=== PATIENT | female | born 1995 | race Two or more races ===

== ENCOUNTER 2017-03-29 11:44 | Emergency (ER) | payer BC, OTHER ==
[~2017-03-29] VITALS: Ht 160 cm; Wt 81.3 kg
[2017-03-29] MEDS ORDERED: SODIUM CHLORIDE 0.9% 1,000ML IVBOLUS ONE (12:30)
[2017-03-29] MEDS ORDERED: SODIUM CHLORIDE FLUSH 10ML SYR IVF ONE (12:30)
[2017-03-29] MEDS ORDERED: KETOROLAC 30 MG/1 ML IVPush ONE (12:30)
[2017-03-29] MEDS ORDERED: ONDANSETRON 2MG/ML, 2ML IVPush ONE (12:30)
[2017-03-29] MEDS ORDERED: CEFTRIAXONE PMX 1GM/50ML 50 ML ONE (12:53)
[2017-03-29] MEDS ORDERED: KETOROLAC 30 MG/1 ML ONE (12:53)
[2017-03-29] MEDS ORDERED: ONDANSETRON 2MG/ML, 2ML ONE (12:53)
[2017-03-29] MEDS ORDERED: CEFTRIAXONE PMX 1GM/50ML 50 ML IV ONE (13:00)
[2017-03-29 13:20] LABS: BLOOD UREA NITROGEN 6 mg/dL (7-18)
[2017-03-29 13:23] LABS: ASPARTATE AMINO TRANSFERASE 12 U/L (15-37)
[2017-03-29 14:22] VITALS: BP 110/62
== END 2017-03-29 14:24 | disposition home or self-care (01) ==
LOC: ED 12:24
DX: O23.02 Infections of kidney in pregnancy, second trimester (principal); Z3A.15 15 weeks gestation of pregnancy
CPT/HCPCS: 36415; 80053; 85025; 96365; 96375; 99284; J0696; J1885; J2405; J7030

== ENCOUNTER 2017-09-04 15:46 | Outpatient (CLI) | payer MEDICAID, OTHER ==
[2017-09-04 16:05] VITALS: BP 113/59
[2017-09-04] MEDS ORDERED: PREN1TAB10 PO (17:04)
== END 2017-09-04 17:18 | disposition home or self-care (01) ==
LOC: LDOP 15:46
PROVIDERS: ATTEND Obstetrics & Gynecology
DX: Z36.9 Encounter for antenatal screening, unspecified (principal); Z3A.37 37 weeks gestation of pregnancy
CPT/HCPCS: 59025; 76819; 99211; G0463

== ENCOUNTER 2018-06-02 04:37 | Emergency (ER) | payer MEDICAID ==
[~2018-06-02] VITALS: Ht 160 cm; Wt 82.4 kg
[~2018-06-02 04:37] MED LIST: HYDR-3240 PO; IBUP-1222 PO; PREN1TAB10 PO
[2018-06-02] MEDS ORDERED: SODIUM CHLORIDE FLUSH 10ML SYR IVF ONE (05:00)
[2018-06-02] MEDS ORDERED: FAMOTIDINE 20 MG/2 ML IVP ONE (05:00)
[2018-06-02] MEDS ORDERED: ONDANSETRON 2MG/ML, 2ML IVPush ONE (05:00)
[2018-06-02] MEDS ORDERED: SODIUM CHLORIDE 0.9% 1,000ML IVBOLUS ONE (05:00)
[2018-06-02] MEDS ORDERED: FAMOTIDINE 20 MG/2 ML ONE (05:07)
[2018-06-02] MEDS ORDERED: ONDANSETRON 2MG/ML, 2ML ONE (05:07)
[2018-06-02 05:22] LABS: BASOPHILS # (AUTO) 0.02 x10^3/uL (0-0.1); BASOPHILS % (AUTO) 0 % (0-1); EOSINOPHILS # (AUTO) 0.17 x10^3/uL (0-0.4); EOSINOPHILS % (AUTO) 2 % (1-7); LYMPHOCYTES # (AUTO) 2.32 x10^3/uL (1-3.4); LYMPHOCYTES % (AUTO) 20 % (22-44); MD NO; MEAN CORPUSCULAR HEMOGLOBIN 30.1 pg (27.0-34.8); MEAN CORPUSCULAR HGB CONC 34.2 g/dL (32.4-35.8); MEAN CORPUSCULAR VOLUME 88.1 fL (80-100); MEAN PLATELET VOLUME 9.3 fL (7.4-10.4); MONOCYTES # (AUTO) 0.73 x10^3/uL (0.2-0.8); MONOCYTES % (AUTO) 6 % (2-9); NEUTROPHILS # (AUTO) 8.41 x10^3/uL (1.8-6.8); NEUTROPHILS % (AUTO) 72 % (42-75); PLATELET COUNT 291 x10^3/uL (130-400); RED BLOOD COUNT 5.16 x10^6/uL (3.82-5.3); RED CELL DISTRIBUTION WIDTH 13.2 % (9.6-15.2)
[2018-06-02 05:35] LABS: ALBUMIN 3.9 g/dL (3.4-5.0); ANION GAP 13 mmol/L (5-15); CALCIUM 8.7 mg/dL (8.5-10.1); CHLORIDE 105 mmol/L (98-107)
[2018-06-02 05:40] LABS: ALANINE AMINOTRANSFERASE 88 U/L (12-78); ALKALINE PHOSPHATASE 200 U/L (45-117); BILIRUBIN,TOTAL 4.3 mg/dL (0.2-1.0); TOTAL PROTEIN 8.4 g/dL (6.4-8.2)
[2018-06-02 06:31] VITALS: BP 115/62
== END 2018-06-02 06:39 | disposition home or self-care (01) ==
LOC: ED 06:33
DX: K80.20 Calculus of gallbladder without cholecystitis without obstruction (principal); R79.89 Other specified abnormal findings of blood chemistry
CPT/HCPCS: 36415; 76700; 80053; 80074; 83690; 84703; 85025; 93005; 96361; 96374; 96375; 99285; J2405; J7030; S0028

== ENCOUNTER 2018-06-02 19:10 | Emergency (ER) | payer MEDICAID ==
[~2018-06-02] VITALS: Ht 160 cm; Wt 83.0 kg
[2018-06-02 20:01] LABS: BASOPHILS # (AUTO) 0.03 x10^3/uL (0-0.1); BASOPHILS % (AUTO) 0 % (0-1); EOSINOPHILS # (AUTO) 0.16 x10^3/uL (0-0.4); EOSINOPHILS % (AUTO) 2 % (1-7); LYMPHOCYTES # (AUTO) 2.65 x10^3/uL (1-3.4); LYMPHOCYTES % (AUTO) 30 % (22-44); MEAN CORPUSCULAR HEMOGLOBIN 30.8 pg (27.0-34.8); MEAN CORPUSCULAR HGB CONC 34.7 g/dL (32.4-35.8); MEAN CORPUSCULAR VOLUME 88.9 fL (80-100); MEAN PLATELET VOLUME 9.1 fL (7.4-10.4); MONOCYTES # (AUTO) 0.74 x10^3/uL (0.2-0.8); MONOCYTES % (AUTO) 8 % (2-9); NEUTROPHILS # (AUTO) 5.32 x10^3/uL (1.8-6.8); NEUTROPHILS % (AUTO) 60 % (42-75); PLATELET COUNT 273 x10^3/uL (130-400); RED BLOOD COUNT 4.64 x10^6/uL (3.82-5.3); RED CELL DISTRIBUTION WIDTH 13.5 % (9.6-15.2)
[2018-06-02 20:05] LABS: MD NO
[2018-06-02 20:07] LABS: ALBUMIN 3.7 g/dL (3.4-5.0); ANION GAP 8 mmol/L (5-15); CHLORIDE 109 mmol/L (98-107)
[2018-06-02 20:11] LABS: ALANINE AMINOTRANSFERASE 179 U/L (12-78); ALKALINE PHOSPHATASE 273 U/L (45-117); CREATININE 0.95 mg/dL (0.55-1.02); TOTAL PROTEIN 7.7 g/dL (6.4-8.2)
[2018-06-02 20:22] LABS: BAND#(MANUAL) 0.09 x10^3/uL; BANDS%(MANUAL) 1 % (0-7); EOS#(MANUAL) 0.18 x10^3/uL (0.0-0.4); EOS% (MANUAL) 2 % (1-7); LYMPH#(MANUAL) 2.76 x10^3/uL (1-3.4); LYMPHS% (MANUAL) 31 % (22-44); MONOS#(MANUAL) 0.53 x10^3/uL (0.3-2.7); MONOS% (MANUAL) 6 % (2-9); SEG#(MANUAL) 5.34 x10^3/uL (1.8-6.8); SEGS% (MANUAL) 60 % (42-75)
[2018-06-02 20:23] LABS: <PLATELET ESTIMATE> ADEQUATE; <PLT MORPHOLOGY> NORMAL PLT MORPH; <RBC MORPHOLOGY> NORMAL
[2018-06-02 21:02] VITALS: BP 111/66
[2018-06-02 21:27] LABS: CULTURE INDICATED? YES; MICROSCOPIC INDICATED
== END 2018-06-02 23:28 | disposition home or self-care (01) ==
LOC: ED 21:46
DX: R10.84 Generalized abdominal pain (principal); E80.7 Disorder of bilirubin metabolism, unspecified
CPT/HCPCS: 36415; 80053; 81001; 85025; 87086; 99284

== ENCOUNTER 2018-08-13 04:20 | Inpatient (IN) | payer MEDICAID ==
[~2018-08-13] VITALS: Ht 160 cm; Wt 86.1 kg
[2018-08-13] MEDS ORDERED: ONDANSETRON ODT 4 MG ONE (04:57)
[2018-08-13] MEDS ORDERED: ONDANSETRON ODT 4 MG PO ONE (05:00)
[2018-08-13 05:06] LABS: MICROSCOPIC NOT IND
[2018-08-13 05:13] LABS: BASOPHILS # (AUTO) 0.02 x10^3/uL (0-0.1); BASOPHILS % (AUTO) 0 % (0-1); EOSINOPHILS # (AUTO) 0.19 x10^3/uL (0-0.4); EOSINOPHILS % (AUTO) 2 % (1-7); LYMPHOCYTES # (AUTO) 2.28 x10^3/uL (1-3.4); LYMPHOCYTES % (AUTO) 26 % (22-44); MD NO; MEAN CORPUSCULAR HEMOGLOBIN 30.5 pg (27.0-34.8); MEAN CORPUSCULAR HGB CONC 34.1 g/dL (32.4-35.8); MEAN CORPUSCULAR VOLUME 89.4 fL (80-100); MONOCYTES # (AUTO) 0.52 x10^3/uL (0.2-0.8); MONOCYTES % (AUTO) 6 % (2-9); NEUTROPHILS # (AUTO) 5.85 x10^3/uL (1.8-6.8); NEUTROPHILS % (AUTO) 66 % (42-75); PLATELET COUNT 259 x10^3/uL (130-400); RED BLOOD COUNT 4.69 x10^6/uL (3.82-5.3); RED CELL DISTRIBUTION WIDTH 13.1 % (9.6-15.2)
[2018-08-13 05:14] LABS: CULTURE INDICATED? NO
[2018-08-13 05:21] LABS: ALANINE AMINOTRANSFERASE 187 U/L (12-78); ALBUMIN 3.6 g/dL (3.4-5.0); ANION GAP 9 mmol/L (5-15); CALCIUM 8.4 mg/dL (8.5-10.1); CHLORIDE 108 mmol/L (98-107); CREATININE 0.87 mg/dL (0.55-1.02)
[2018-08-13 05:26] LABS: ALKALINE PHOSPHATASE 229 U/L (45-117); BILIRUBIN,TOTAL 2.7 mg/dL (0.2-1.0); TOTAL PROTEIN 7.9 g/dL (6.4-8.2)
[2018-08-13] MEDS ORDERED: SODIUM CHLORIDE 0.9% 1,000 ML IV ONE (07:16)
[2018-08-13] MEDS ORDERED: SODIUM CHLORIDE FLUSH 10ML SYR IVF PRN (07:30)
[2018-08-13] MEDS ORDERED: PROMETHAZINE 25 MG/ML, 1ML IM PRN ×3 (08:00→16:30)
[2018-08-13 08:55] VITALS: BP 98/65
[2018-08-13] MEDS: SODIUM CHLORIDE 0.9% 1,000 ML IV SCH (11:02)
[2018-08-13] MEDS ORDERED: ROCURONIUM 10MG/ML,5ML ONE (14:44)
[2018-08-13] MEDS ORDERED: FENTANYL PF 250 MCG/5ML ONE (15:50)
[2018-08-13] MEDS ORDERED: MIDAZOLAM 1 MG/ML, 2ML ONE (15:50)
[2018-08-13] MEDS ORDERED: PROPOFOL 10 MG/ML, 20ML ONE (15:51)
[2018-08-13 15:53] VITALS: BP 106/69
[2018-08-13] MEDS ORDERED: BUPIVACAINE/PF-EPI 0.5% 1:200K ONE (15:53)
[2018-08-13] MEDS ORDERED: THROMBIN 5,000 UNIT VIAL TP ONE (15:54)
[2018-08-13] MEDS ORDERED: NEOSTIGMINE 1 MG/ML, 10ML ONE (15:59)
[2018-08-13] MEDS ORDERED: GLYCOPYRROLATE 0.2MG/1ML, 5ML ONE (15:59)
[2018-08-13] MEDS ORDERED: ONDANSETRON 2MG/ML, 2ML ONE (16:00)
[2018-08-13] MEDS ORDERED: DEXAMETHASONE 4 MG/ML, 1ML ONE ×2 (16:00)
[2018-08-13] MEDS ORDERED: CEFOTETAN PMX 2GM/50ML 50 ML ONE (16:00)
[2018-08-13] MEDS ORDERED: LABETALOL 5MG/ML, 20ML IV PRN (16:30)
[2018-08-13] MEDS ORDERED: ONDANSETRON 2MG/ML, 2ML IV PRN (16:30)
[2018-08-13] MEDS ORDERED: ACETAMINOPHEN 325 MG TABLET PO PRN (16:30)
[2018-08-13] MEDS ORDERED: OXYcodone 5 MG/5 ML ORAL.SOL UDC PO PRN (16:30)
[2018-08-13] MEDS ORDERED: hydrALAzine 20 MG/ML, 1ML IV PRN (16:30)
[2018-08-13] MEDS ORDERED: FENTANYL PF 100 MCG/2ML IV PRN (16:30)
[2018-08-13] MEDS ORDERED: MEPERIDINE/PF 25MG/0.5ML IVPush PRN (16:30)
[2018-08-13] MEDS ORDERED: ONDANSETRON ODT 8 MG PO PRN (16:30)
[2018-08-13] MEDS ORDERED: MORPHINE SULFATE 4 MG/ML, 1ML IVPush PRN (16:30)
[2018-08-13] MEDS ORDERED: PROMETHAZINE 25 MG/ML, 1ML IV PRN (16:30)
[2018-08-13] MEDS ORDERED: HYDROmorphone 1 MG/ML, 1ML IV PRN (16:30)
[2018-08-13] MEDS ORDERED: OMNIPAQUE 350 MG/ML, 50 ML BOTTLE ONE (17:53)
[2018-08-13] MEDS ORDERED: ACETAMINOPHEN 650 MG/20.3 ML UDC ONE (18:12)
[2018-08-13] MEDS ORDERED: FENTANYL PF 100 MCG/2ML ONE (18:12)
[2018-08-13] MEDS ORDERED: OXYcodone 5 MG/5 ML ORAL.SOL UDC ONE (18:13)
[2018-08-13] MEDS ORDERED: OXYcodone/APAP 5/325MG TABLET PO PRN (19:00)
[2018-08-13] MEDS: CIPROFLOXACIN/PMX 400MG/200ML 200 ML IV SCH (19:25)
[2018-08-13 19:51] VITALS: BP 109/73
[2018-08-13] MEDS: morphine SULFATE 10 MG/ML, 1ML IVPush PRN (21:28)
[2018-08-13] MEDS: METRONIDAZOLE PMX 500MG/100ML 100 ML IV SCH (22:30)
[2018-08-14 00:51] VITALS: BP 100/65
[2018-08-14] MEDS: SODIUM CHLORIDE 0.9% 1,000 ML IV SCH ×2 (01:14→17:27)
[2018-08-14 04:38] VITALS: BP 96/57
[2018-08-14 04:44] LABS: BASOPHILS % (AUTO) 0 % (0-1); EOSINOPHILS % (AUTO) 0 % (1-7); LYMPHOCYTES # (AUTO) 1.33 x10^3/uL (1-3.4); LYMPHOCYTES % (AUTO) 12 % (22-44); MD NO; MEAN CORPUSCULAR HEMOGLOBIN 30.9 pg (27.0-34.8); MEAN CORPUSCULAR HGB CONC 34.4 g/dL (32.4-35.8); MEAN CORPUSCULAR VOLUME 89.8 fL (80-100); MEAN PLATELET VOLUME 9.2 fL (7.4-10.4); MONOCYTES % (AUTO) 1 % (2-9); NEUTROPHILS # (AUTO) 9.55 x10^3/uL (1.8-6.8); NEUTROPHILS % (AUTO) 87 % (42-75); PLATELET COUNT 273 x10^3/uL (130-400); RED BLOOD COUNT 4.55 x10^6/uL (3.82-5.3); RED CELL DISTRIBUTION WIDTH 13.8 % (9.6-15.2)
[2018-08-14 04:52] LABS: ALBUMIN 3.3 g/dL (3.4-5.0); ANION GAP 10 mmol/L (5-15); CALCIUM 8.2 mg/dL (8.5-10.1); CHLORIDE 108 mmol/L (98-107)
[2018-08-14 05:05] LABS: ALANINE AMINOTRANSFERASE 185 U/L (12-78); ALKALINE PHOSPHATASE 248 U/L (45-117); CREATININE 0.83 mg/dL (0.55-1.02); THYROID STIMULATING HORMONE 0.456 mIU/L (0.358-3.740); TOTAL PROTEIN 7.3 g/dL (6.4-8.2)
[2018-08-14] MEDS: METRONIDAZOLE PMX 500MG/100ML 100 ML IV SCH ×3 (06:17→23:41)
[2018-08-14 07:26] VITALS: BP 108/67
[2018-08-14] MEDS: CIPROFLOXACIN/PMX 400MG/200ML 200 ML IV SCH ×2 (07:36→20:58)
[2018-08-14] MEDS: morphine SULFATE 10 MG/ML, 1ML IVPush PRN (10:04)
[2018-08-14] MEDS ORDERED: FENTANYL PF 100 MCG/2ML ONE (12:08)
[2018-08-14] MEDS ORDERED: MIDAZOLAM 1 MG/ML, 2ML ONE (12:08)
[2018-08-14] MEDS ORDERED: LABETALOL 5MG/ML, 20ML IV PRN (13:00)
[2018-08-14] MEDS ORDERED: FENTANYL PF 100 MCG/2ML IV PRN (13:00)
[2018-08-14] MEDS ORDERED: HYDROmorphone 1 MG/ML, 1ML IV PRN (13:00)
[2018-08-14] MEDS ORDERED: OXYcodone 5 MG/5 ML ORAL.SOL UDC PO PRN (13:00)
[2018-08-14] MEDS ORDERED: MIDAZOLAM 1 MG/ML, 2ML IV PRN (13:00)
[2018-08-14] MEDS ORDERED: ONDANSETRON 2MG/ML, 2ML IVPush PRN (13:00)
[2018-08-14] MEDS ORDERED: MEPERIDINE/PF 25MG/0.5ML IVPush PRN (13:00)
[2018-08-14] MEDS ORDERED: INDOMETHACIN 50 MG SUPP.RECT PR STA (13:08)
[2018-08-14] MEDS ORDERED: INDOMETHACIN 50 MG SUPP.RECT ONE (13:15)
[2018-08-14 14:00] VITALS: BP 114/72
[2018-08-14] MEDS ORDERED: INDOMETHACIN 50 MG SUPP.RECT PR ONE (14:30)
[2018-08-14] MEDS ORDERED: SUCCINYLCHOLINE 20 MG/ML, 10ML ONE (15:36)
[2018-08-14] MEDS ORDERED: METOCLOPRAMIDE 5 MG/ML, 2ML ONE (15:36)
[2018-08-14] MEDS ORDERED: ONDANSETRON ODT 4 MG PO PRN (19:00)
[2018-08-14 19:40] VITALS: BP 94/51
[2018-08-15 02:56] VITALS: BP 109/67
[2018-08-15 04:44] LABS: BASOPHILS # (AUTO) 0.04 x10^3/uL (0-0.1); BASOPHILS % (AUTO) 0 % (0-1); EOSINOPHILS # (AUTO) 0.03 x10^3/uL (0-0.4); EOSINOPHILS % (AUTO) 0 % (1-7); LYMPHOCYTES # (AUTO) 3.28 x10^3/uL (1-3.4); LYMPHOCYTES % (AUTO) 26 % (22-44); MD NO; MEAN CORPUSCULAR HEMOGLOBIN 30.3 pg (27.0-34.8); MEAN CORPUSCULAR HGB CONC 33.7 g/dL (32.4-35.8); MEAN CORPUSCULAR VOLUME 89.9 fL (80-100); MEAN PLATELET VOLUME 9.5 fL (7.4-10.4); MONOCYTES % (AUTO) 7 % (2-9); NEUTROPHILS # (AUTO) 8.51 x10^3/uL (1.8-6.8); NEUTROPHILS % (AUTO) 67 % (42-75); PLATELET COUNT 276 x10^3/uL (130-400); RED BLOOD COUNT 4.37 x10^6/uL (3.82-5.3)
[2018-08-15 04:56] LABS: CHLORIDE 108 mmol/L (98-107)
[2018-08-15 05:04] LABS: ALANINE AMINOTRANSFERASE 121 U/L (12-78); ALBUMIN 3.2 g/dL (3.4-5.0); ALKALINE PHOSPHATASE 208 U/L (45-117); ANION GAP 8 mmol/L (5-15); CALCIUM 8.5 mg/dL (8.5-10.1); TOTAL PROTEIN 7.3 g/dL (6.4-8.2)
[2018-08-15 06:42] VITALS: BP 104/66
[2018-08-15] MEDS: METRONIDAZOLE PMX 500MG/100ML 100 ML IV SCH ×2 (06:46→14:30)
[2018-08-15] MEDS: SODIUM CHLORIDE 0.9% 1,000 ML IV SCH (07:20)
[2018-08-15] MEDS: CIPROFLOXACIN/PMX 400MG/200ML 200 ML IV SCH (08:39)
[2018-08-15] MEDS ORDERED: POLY17PO5 PO (08:51)
[2018-08-15] MEDS ORDERED: OXYC-302 PO (08:51)
[2018-08-15 13:09] VITALS: BP 97/61
[2018-08-15] MEDS ORDERED: ONDA4TAB13 PO (13:38)
== END 2018-08-15 14:48 | disposition home or self-care (01) | DRG 419 ==
LOC: ED 07:15 → EDIP 07:16 → ED 07:50 → 4NOR 08:20 → DCLOUNGE 08-15 14:29
PROVIDERS: ADMIT Hospitalist; ATTEND Hospitalist
PROC: BF101ZZ Fluoroscopy of Bile Ducts using Low Osmolar Contrast (ICD-10-PCS; 2018-08-14)
PROC: 0F798ZZ Dilation of Common Bile Duct, Via Natural or Artificial Opening Endoscopic (ICD-10-PCS; 2018-08-14)
PROC: 0FT44ZZ Resection of Gallbladder, Percutaneous Endoscopic Approach (ICD-10-PCS; principal; 2018-08-15)
PROC: BF131ZZ Fluoroscopy of Gallbladder and Bile Ducts using Low Osmolar Contrast (ICD-10-PCS; 2018-08-15)
DX: K80.65 Calculus of gallbladder and bile duct with chronic cholecystitis with obstruction (principal); E66.9 Obesity, unspecified; R73.9 Hyperglycemia, unspecified; Z68.33 Body mass index [BMI] 33.0-33.9, adult
CPT/HCPCS: 36415; 74300; 74328; 99285; J3490; 74181; 76700; 80053; 81003; 83690; 84443; 84703; 85025; 88304; C1729; G0378; J0744; J1100; J2250; J2405; J2704; J2710; J3010; Q0162; Q9967; C1769; J0330; J2270; J2765; J7030; S0074